=== PATIENT | male | born 1940 ===

== ENCOUNTER 2021-11-24 05:42 | Day surgery (SDC) | payer OTHER ==
[~2021-11-24] VITALS: Ht 180.3 cm; Wt 96.2 kg
[~2021-11-24 05:42] MED LIST: CHILDREN'S ASPI81 MG PO; DIOVAN320 MG PO; NORVASC10 MG PO
[2021-11-24] MEDS ORDERED: PERCOCET 5-3251 EACH PO (08:45)
[2021-11-24] MEDS ORDERED: RECTICARE30 GM TOP (08:47)
== END 2021-11-24 13:45 | disposition home or self-care (01) ==
LOC: CIR.AMB 05:42
PROVIDERS: ATTEND Surgery
DX: D12.8 Benign neoplasm of rectum (principal); Z20.822 Contact with and (suspected) exposure to COVID-19; I10 Essential (primary) hypertension; N40.0 Benign prostatic hyperplasia without lower urinary tract symptoms